=== PATIENT | female | born 1965 | race Two or more races ===

== ENCOUNTER → 2025-01-15 | Outpatient (CLI) | payer MEDICAID, SELFPAY ==
--- NOTE | 2025-01-15 15:57 | XR_ITS ---
Examination:Left hip AP, lateral, AP pelvis 3 views Technique: Hip AP lateral, AP pelvis, 3 views Exam date and time:January 07, 2025 1620 hrs. Indications: Status post operative reduction internal fixation left hip fracture Findings: Orthopedic screws traverse the left subcapital region Satisfactory alignment Mild bilateral hip osteoarthritis No acute fracture Impression: Postop reduction internal fixation left hip fracture with satisfactory alignment
== END | disposition home or self-care (01) ==
LOC: SDIM 15:39
PROVIDERS: PCP Family Medicine; Referring Provider Orthopaedic Surgery; Visit Provider Orthopaedic Surgery
DX: S72.092A Other fracture of head and neck of left femur, initial encounter for closed fracture (principal); X58.XXXA Exposure to other specified factors, initial encounter
CPT/HCPCS: 73502